=== PATIENT | male | born 1960 | race Caucasian/White ===

== ENCOUNTER 2016-11-21 06:41 | Inpatient (IN) ==
[2016-11-21] MEDS ORDERED: MORPHINE 2 MG/1 ML SYRINGE IV STA (07:12)
[2016-11-21] MEDS ORDERED: NITROGLYCERIN 2% OINT 1 INCH/GM PACK TOP STA (07:12)
[2016-11-21] MEDS ORDERED: ONDANSETRON 4 MG/2 ML VIAL IV STA (07:12)
[2016-11-21] MEDS ORDERED: ASPIRIN 325 MG TABLET PO STA (07:12)
[2016-11-21 07:17] LABS: Basophils % 0.2 % (0.0-0.8); Eosinophils # 0.1 10*3/uL (0.0-0.87); Eosinophils % 0.4 % (0.00-10.9); Hematocrit 40.6 VOL% (42.0-52.0); Hemoglobin 13.6 GM/DL (14.0-18.0); Immature Granulocytes % 0.4 %; Immature Granulocytes Absolute 0.07 #; Lymphocytes # 1.3 10*3/uL (1.4-4.0); Lymphocytes % 7.8 % (21.2-54.2); Mean Corpuscular HGB Conc 33.5 GM/DL (32-36); Mean Corpuscular Hemoglobin 27 PG (27-34); Mean Corpuscular Volume 79.3 FL (87-102); Mean Platelet Volume 10.4 FL (9.6-12.0); Monocytes % 5.8 % (1.7-12.7); Neutrophils # 13.9 10*3/uL (1.4-7.4); Neutrophils % 85.4 % (38.7-73.9); Platelet Count 271 T/CUMM (130-400); Red Blood Count 5.12 MC/CUMM (3.8-5.5); Red Cell Distribution Width 12.6 % (9.3-17.3); White Blood Count 16.3 T/CUMM (4-12)
[2016-11-21 07:32] LABS: Albumin 3.7 G/DL (3.4-5.0); Bilirubin,Total 0.5 MG/DL (0.2-1.0); Calcium 8.3 MG/DL (8.5-10.1); Osmolality,Calculated 284.2 MOS/KG (273-304); Potassium 3.8 MMOL/L (3.5-5.1)
--- NOTE | 2016-11-21 08:03 | EKG Report ---
Stationary ECG Study [facility] ER Test Date: 11/21/2016 6:57:37 AM Pat Name: KAYLEE NGO Department: Room: Gender: M Chief Of Staff: : 1960 Requested by: Yossi Luna Order Number: [id number] Reading MD: BRAYDEN MOREAU Intervals [place] Rate: 89 P: 71 PA: 194 QRS: 29 QRSD: 109 T: 76 QT: 366 QTc: 412 Interpretive Statements SINUS RHYTHM INFERIOR MYOCARDIAL INFARCTION, PROBABLY OLD Electronically Signed On 11-22-16 16:48:52 CDT by BRAYDEN MOREAU [email or web address]
--- NOTE | 2016-11-21 08:25 | XRay Report ---
XR chest 1V portable Indication: Chest pain. Chest one view: Comparison 04/22/2014. Small left pleural effusion has developed. Coarse interstitial markings in the lungs appear relatively stable from the prior exam. Left basilar atelectasis is now present. Heart size remains normal with postoperative changes median sternotomy. Impression: Small left pleural effusion, new. Otherwise no change in diffuse interstitial lung disease. PROCEDURE INTERPRETED AT [facility] DEPARTMENT OF RADIOLOGY Final Report Signed by: Louis Forte M.D.
[2016-11-21] MEDS ORDERED: ASPIRIN 325 MG TABLET ONE (09:13)
[2016-11-21] MEDS ORDERED: NITROGLYCERIN 2% OINT 1 INCH/GM PACK TOP ONE (09:14)
[2016-11-21] MEDS ORDERED: MORPHINE 2 MG/1 ML SYRINGE ONE (09:14)
[2016-11-21] MEDS ORDERED: ONDANSETRON 4 MG/2 ML VIAL ONE (09:14)
--- NOTE | 2016-11-21 10:34 | Emergency Department Note ---
Elliot Faulkner Brooke, am scribing for, and in the presence of, Yossi Luna Jr., MD 07:13. Jeremy Faulkner Marvin Jr., MD, personally performed the services described in this documentation, ascribed by Jessica Zarate in my presence, and it is both accurate and complete 732 . Arrival - Arrival Chief Complaint: Chest Pain Stated Complaint: chest pains ED Nursing Triage Note: pt states around 0045 -0100 started feeling like bp was rising as in felt like needles sticking and alot of pressure in head then had diarrhea and now having cp with sob on exertion. pt has had a cabg in the past Mode of Arrival: Ambulatory Limitations: No Limitations Source: Patient, RN Notes Reviewed Time Seen by Provider: 11/21/16 07:01 - History of Present Illness HPI Narrative: Patient is a 56 year old male who presents to the ED following a syncopal episode that happened around 1539-0427 this morning. He says his blood pressure was elevated and he felt like he was going to "blow up." He says it felt like "needles" were coming out of him "everywhere." He says he no longer feels that way. Patient says he fell onto the washer and dryer during his syncopal episode and had diarrhea and had to clean himself upon waking. Patient says he thinks he was out for about twenty minutes. He also complains of chest pain that has been intermittent for the past six months and currently, his chest is tender to touch. He says he does get short of breath upon exertion. He denies any nausea, vomiting, or abdominal pain. Patient went to [place] ED in July for elevated blood pressure. He has PMHx of HTN, dyslipidemia, and IDDM. His Primary Care Provider is Dr. Radha Mena. Patient is a smoker. He does not drink alcohol or do any drugs. Allergies/Adverse Reactions: Allergies Allergy/AdvReac Type Severity Reaction Status Date / Time No Known Allergies Allergy Unverified 11/21/16 06:50 Review of System - Review of System 12 point system: reviewed and no additional remarkable complaints except as stated - Review of System Constitutional: Absent: fever Respiratory: Present: other (SOB with exertion). Absent: respiratory distress Cardiovascular: Present: chest pain (intermittent for the last 6 months. Currently tender to touch), syncope Gastrointestinal: Present: diarrhea. Absent: abdominal pain, nausea, vomiting Skin: Absent: rash Medical,Surgical,& Family Hx - Medical History Cardio: History of: Hypertension Endocrine: History of: Diabetes Mellitus (IDDM), Dyslipidemia - Surgical History Cardiac Surgeries: Sugical HX of: Cardiac Catheterization, Cardiac Surgery (cabg ) - Family History Family History: Reports;: Family Cancer, Family Diabetes, Family Heart Disease, Family Hypertension - Social History Smoking Status: Unknown if ever smoked Frequency of Alcohol Use: None Type of Drug Use: None Exam Physical Examination: General: Well-developed well-nourished, no apparent distress. Head: Normocephalic, atraumatic. Eyes: PERRLA, EOMI. Nose: No obvious acute deformities or discharge. Mouth: No obvious acute injury. Neck: Full range of motion without obvious pain. No midline tender to palpation. Lymphatic: no significant lymphadenopathy noted. Lungs: Clear to auscultation bilaterally, normal and equal air movement bilaterally, no obvious rales or wheezing. Chest wall: Left chest wall tender to palpation, reproduces complaint Heart: regular rate and rhythm, no obvious mummers. Abdomen: Soft nontender, nondistended, normal active bowel sounds. Skin: No obivous acute lesions noted Musculoskeletal: No gross deformities. Neurological: No focal findings, cranial nerves II through XII grossly normal. Psychiatric: Anxious : Deferred Vital Signs: Vital Signs Temperature 99.2 F 11/21/16 06:44 Pulse Rate 79 11/21/16 10:00 Respiratory Rate 30 H 11/21/16 10:00 Blood Pressure 106/78 11/21/16 10:00 O2 Sat by Pulse Oximetry 100 11/21/16 10:00 Course Course Narrative: Differential diagnosis, ACS, angina, anxious mood, diarrhea, syncope, arrhythmias - Reevaluation(s) Reevaluation #1: Hospital service was consulted and they accept admission for the patient will come to the ER and admit him. Time: 10:33 Results - Labs CBC & BMP: 11/21/16 07:00 11/21/16 07:00 Lab Results: I have reviewed the patients labs Labs: Laboratory Tests 11/21/16 07:00 WBC 16.3 H RBC 5.12 Hgb 13.6 L Hct 40.6 L MCV 79.3 L MCH 27 MCHC 33.5 RDW 12.6 Plt Count 271 MPV 10.4 Neut % (Auto) 85.4 H Lymph % (Auto) 7.8 L [place] % (Auto) 5.8 Eos % (Auto) 0.4 Baso % (Auto) 0.2 Neut # (Auto) 13.9 H Lymph # (Auto) 1.3 L [place] # (Auto) 1.0 H Eos # (Auto) 0.1 Baso # (Auto) 0.0 Immature Gran % 0.4 Nucleated RBC % 0.0 Immature Gran # 0.07 Nucleated RBCs # 0.00 Laboratory Tests 11/21/16 11/21/16 07:00 07:00 Sodium 134 L Potassium 3.8 Chloride 99 Carbon Dioxide 26 Anion Gap 12.8 BUN 19 H Creatinine 1.10 GFR Calculation 105 BUN/Creatinine Ratio 17.00 Glucose 362 H Calculated Osmolality 284.2 Calcium 8.3 L Total Bilirubin 0.50 AST 11 ALT 17 Alkaline Phosphatase 99 Troponin I 0.263 H Total Protein 7.0 Albumin 3.7 Globulin 3.3 Albumin/Globulin Ratio 1.1 - EKG EKG results: interpreted by ERMD (Heart rate 89, normal sinus rhythm, narrow complex QRS complex, no obvious acute ST changes.) - Diagnostic Findings Procedure: Chest x-ray: report reviewed by me, image reviewed by me (Small left pleural effusion, new. Otherwise no change in diffuse interstitial lung disease. I personally reviewed this chest x-ray and agree) Disposition Clinical Impression: Non-ST elevation OR (NSTEMI), Hyperglycemia, Neutrophilia Case discussed with: patient, patient's family Disposition: Still a Patient Condition: Stable Time of Disposition: 10:29
[2016-11-21] MEDS ORDERED: ONDANSETRON 4 MG/2 ML VIAL IV PRN (10:38)
[2016-11-21] MEDS ORDERED: INSULIN REGULAR 100 UNIT/ML SUBCUT ONE (10:38)
[2016-11-21] MEDS ORDERED: MAGNESIUM SULF RIDER 2 GM in PREMIX 1 EACH IV PRN ×3 (10:38→17:26)
[2016-11-21] MEDS ORDERED: ACETAMINOPHEN 325 MG TABLET PO PRN (10:38)
[2016-11-21] MEDS ORDERED: MAGNESIUM HYDROXIDE SUSP 30 ML UDCUP PO PRN (10:38)
[2016-11-21] MEDS ORDERED: NITROGLYCERIN SL 0.4 MG TABLET SL PRN (10:38)
[2016-11-21] MEDS ORDERED: BISACODYL 5 MG TABLET PO PRN (10:38)
[2016-11-21] MEDS ORDERED: ENOXAPARIN 40 MG/0.4 ML SYRINGE SUBCUT SCH (11:00)
--- NOTE | 2016-11-21 11:20 | Hospitalist History & Physical ---
Assessment and Plan (1) Hyperglycemia Status: Acute Assessment and plan: Will obtain HGA1C today. Start accuchecks with sliding scale coverage; consult informatics educator. Current Visit: Yes (2) Non-ST elevation [place] (NSTEMI) Status: Acute Assessment and plan: Will admit to telemetry. Will obatain full cardiac work-up. Will get serial cardiac enzymes, echocardiogram, and carotid dopplers. Lipid panel also. Will recheck labs in AM. Current Visit: Yes History of Present Illness Chief complaint: "chest pain" History of present illness: This is a very pleasant 56 year-old male that presented to the ED this morning with a chief compliant of chest pain. He has a rather impressive history of coronary artery disease, diabetes mellitus, dyspididemia, morbid obesity, myocardial infarction, current nicotine abuse, and hypertension. He has a surgical history of coronary artery bypass in the past. He reports the onset of pain with shortness of breath around midnight last night; which progressively worsened with the progression of time. He describes the pain as "pressure like and feeling like needle pricks". The pain became so intense and he became alarmed. He was brought to the ED by his friend for further evaluation. At the time of ED arrival; he was immediately assessed. Electrocardiogram showed normal sinus rhythm, narrow complex QRS complex, no obvious acute ST changes. His cardiac enzymes were obtained which revealed a grossly troponin elevation at 0.263. White blood cell count of 16 and glucose level of 362. After discussion with Dr. Luna and Dr. Peterson, the patient will be admitted to the telemetry unit for continuation of care. Due to his extensive previous cardiac history, we will consult cardiology. Home Medications Medication Instructions Recorded Confirmed Type Aspirin EC Tab 81 mg PO QAM 11/21/16 11/21/16 History Glimepiride 2 mg PO BID 11/21/16 11/21/16 History Insulin Glargine,Hum.rec.anlog 40 unit SUBCUT BEDTIME 11/21/16 11/21/16 History [Tohuong Mayo] Losartan/Hydrochlorothiazide 0.5 each PO QAM 11/21/16 11/21/16 History [Losartan-Hctz 50-12.5 mg Tab] Metoprolol Tartrate 50 mg PO QAM 11/21/16 11/21/16 History dilTIAZem HCl [Tiazac] 360 mg PO QAM 11/21/16 11/21/16 History Allergies Allergy/AdvReac Type Severity Reaction Status Date / Time No Known Allergies Allergy Unverified 11/21/16 06:50 Medical,Surgical,& Family Hx - Medical History Cardio: History of: Hypertension Endocrine: History of: Diabetes Mellitus (IDDM), Dyslipidemia - Surgical History Cardiac Surgeries: Sugical HX of: Cardiac Catheterization, Cardiac Surgery (cabg ) - Family History Family History: Reports;: Family Cancer, Family Diabetes, Family Heart Disease, Family Hypertension - Social History Smoking Status: Current every day smoker Have you smoked in the last 12 months: Yes Time spent discussing smoking cessation with patient: more than 10 minutes Frequency of Alcohol Use: None Type of Drug Use: None Marital Status: Single Lives With:: Alone Functional capacity: independent ambulation - Constitutional Constitutional: Present: fatigue. Absent: frequent falls, headache(s), lethargy , malaise, night sweats, stops breathing during sleep, weakness, weight gain, weight loss - EENT Eyes: Absent: diplopia, loss of vision Nose, mouth and throat: Absent: nasal congestion, neck mass, neck pain - Cardiovascular Cardiovascular: Present: chest pain at rest, chest pain with activity, dyspnea, dyspnea on exertion, radiating jaw, neck or arm pain, lightheadedness. Absent: orthopnea, palpitations, PND - Respiratory Respiratory: Present: dyspnea, dyspnea on exertion, snoring, pain on inspiration. Absent: wheezing - Gastrointestinal Gastrointestinal: Absent: abdominal pain, change in bowel habits, constipation, cramping, diarrhea, melena, nausea, vomiting - Genitourinary Genitourinary: Absent: difficulty urinating, dysuria, flank pain, hematuria, nocturia, urinary frequency, urinary incontinence - Musculoskeletal Musculoskeletal: Absent: arthralgias, back pain, joint swelling, limited range of motion, muscle weakness, myalgias - Neurological Neurological: Absent: abnormal gait, abnormal speech, behavioral changes, confusion, convulsions, disequilibrium, dizziness, frequent falls, headache(s), memory loss, numbness, radicular pain, syncope, tremor(s) - Psychiatric Psychiatric: Absent: anxiety, confusion, difficulty concentrating, homicidal ideation, memory loss, suicidal ideation, visual hallucinations - Endocrine Endocrine: Absent: polydipsia, polyphagia, polyuria - Hematologic/Lymphatic Hematologic/Lymphatic: Absent: easy bleeding, easy bruising, lymphadenopathy Exam - Constitutional Vitals: Period Temp Pulse Resp BP Sys/Merlos Pulse Ox Last 24 Hr 80-80 20-20 111-120/76-85 98-100 General appearance: mild distress, morbidly obese - Head Head exam: Present: normal inspection, normocephalic, atraumatic - Eye Eye exam: Present: EOMI. Absent: conjunctival injection, nystagmus, periorbital swelling, scleral icterus Pupils: Present: ESTEFANIA, normal accommodation - ENT ENT exam: Present: normal exam, normal external ear exam - Neck Neck exam: Present: normal inspection. Absent: lymphadenopathy, meningismus, tenderness, thyromegaly - Respiratory Respiratory exam: Present: clear to auscultation bilaterally, chest wall tenderness (left wall tenderness) - Cardiovascular Cardiovascular exam: Present: regular rate and rhythm, tachycardia. Absent: diastolic murmur, gallop, JVD, rubs - GI/Abdominal GI/Abdominal exam: Present: normal bowel sounds, soft. Absent: firm, guarding, tenderness - Extremities Exam Extremities exam: Present: normal inspection, full ROM. Absent: edema (trace edema) - Back Exam Back exam: Present: normal inspection - Neurological Exam Neurological exam: Present: alert, oriented X3, CN II-XII intact - Psychiatric Psychiatric exam: Present: normal affect, normal mood - Skin Skin exam: Present: normal color, warm, dry Results - Labs CBC & BMP: 11/21/16 07:00 11/21/16 07:00 Lab Results: I have reviewed the past 24 hour labs
--- NOTE | 2016-11-21 11:34 | Ultrasound Report ---
US carotid duplex BI Indication: Syncope. CAROTID ULTRASOUND Comparison: 11/03/2006. Findings: Grayscale, color Doppler and pulsed Doppler interrogation of the carotid and vertebral arteries performed. Severity of stenosis based on flow velocity measurements using NASCET criteria. Distal right ICA diameter: 4.9 mm Distal left ICA diameter: 5.4 mm Peak systolic flow velocities in centimeters per second are as follows: Right: CCA: 85 cm/s Proximal ICA: 108 Distal ICA: 73 ICA/CCA ratio: 1.3 Left: CCA: 119 cm/s Proximal ICA: 63 Distal ICA: 71 ICA/CCA ratio: 0.6 External carotid arteries: Both are patent with antegrade flow. Vertebral arteries: Both are patent with antegrade flow. Grayscale and color Doppler images: A couple small foci of focal plaque deposition identified, with normal color Doppler flow present. Pulse Doppler waveform interrogation: No significant spectral broadening. Impression: No hemodynamically significant stenosis of either ICA origin. PROCEDURE INTERPRETED AT [facility] DEPARTMENT OF RADIOLOGY Final Report Signed by: Louis Forte M.D.
[2016-11-21 12:37] LABS: Risk Ratio 4.9; VLDL CHOLESTEROL 17.2 MG/DL
[2016-11-21 12:46] LABS: Free T4 (Free Thyroxine) 1.03 NG/DL (0.76-1.46); Thyroid Stimulating Hormone 0.954 uIU/ml (0.358-3.74)
--- NOTE | 2016-11-21 13:34 | EKG Report ---
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
[2016-11-21] MEDS: LISINOPRIL 2.5 MG TABLET PO SCH (14:14)
[2016-11-21] MEDS: LEVOFLOXACIN INJ 750 MG in PREMIX 1 EACH IV SCH (14:15)
--- NOTE | 2016-11-21 15:44 | Cardiology Consult Note ---
Assessment and Plan (1) Non-ST elevation [place] (NSTEMI) Status: Acute Assessment and plan: 56-year-old male, CAD, status post CABG, presenting with non-STEMI. Moderate risk presentation. Borderline biomarkers, without significant EKG changes, chest pain resolved with medical management. Hypertension hyperlipidemia, diabetes. Obesity, smoking. -Continue aspirin. -Load with Brilinta, start full dose Lovenox. -Statin -PPI. -Continue beta trevor -NTG -Pull in his old records into the EMR -Keep on telemetry, recheck EKG in a.m. -Cardiac rehab consult -Discussed risks and benefits of management options. I will keep him n.p.o. after midnight, plan for [facility] tomorrow Current Visit: Yes (2) Hyperglycemia Status: Acute Current Visit: Yes (3) Neutrophilia Status: Acute Current Visit: Yes History of Present Illness - Data of Consult Patient: known to practice within the last 3 years Consult date: 11/21/16 - Consult Narrative Reason for consult: nstemi History of present illness: Mr. Kline is a 56 year old male with history of hypertension hyperlipidemia CAD, status post CABG 2 in 2013, by Dr. Paiz. His certified ophthalmic surgical assistant is Dr. Contreras. Unfortunately, my PCI access is not working and the [facility] system is down and I am unable to obtain any further details on his prior cardiac history or coronary anatomy. Last night, he developed sudden onset, severe retrosternal chest pain, which was radiating both sides, and had a tingling sensation in the neck too. This lasted for hours. In the emergency room, this resolved with medical management. Right now, his chest pain-free. EKG sinus rhythm, without significant ST-T changes. Blood pressure is stable. He denies any shortness of breath. Prior to current presentation, he felt fine and had no exertional symptoms. He keeps smoking. Compliant with his medications. He does not check his blood pressure at home and is not sure about his recent hemoglobin A1c. Troponin borderline elevated and flat, renal function normal. Telemetry so far did not show significant arrhythmia. CC: Genevieve Orellana MD - Home Medications and Allergies Home Medications: Home Medications Medication Instructions Recorded Confirmed Type Aspirin EC Tab 81 mg PO QAM 11/21/16 11/21/16 History Glimepiride 2 mg PO BID 11/21/16 11/21/16 History Insulin Glargine,Hum.rec.anlog 40 unit SUBCUT BEDTIME 11/21/16 11/21/16 History [Jose Postar] Losartan/Hydrochlorothiazide 0.5 each PO QAM 11/21/16 11/21/16 History [Losartan-Hctz 50-12.5 mg Tab] Metoprolol Tartrate 50 mg PO QAM 11/21/16 11/21/16 History dilTIAZem HCl [Tiazac] 360 mg PO QAM 11/21/16 11/21/16 History Allergies/Adverse Reactions: Allergies Allergy/AdvReac Type Severity Reaction Status Date / Time No Known Allergies Allergy Unverified 11/21/16 06:50 12 point system: reviewed and no additional remarkable complaints except as stated Medical,Surgical,& Family Hx - Medical History Cardio: History of: Hypertension, DC (x4) Endocrine: History of: Diabetes Mellitus (IDDM), Dyslipidemia Respiratory: History of: Pneumonia Genitourinary: History of: Recurring Urinary Tract Infections Gastrointestinal: History of: GERD Musculoskeletal: History of: Back/Neck Problems, Herniated Disk - Surgical History Cardiac Surgeries: Sugical HX of: Cardiac Catheterization, Cardiac Surgery (cabg ) Abdominal Surgeries: Surgical HX of: Colonoscopy, EGD - Family History Family History: Reports;: Family Cancer, Family Diabetes, Family Heart Disease, Family Hypertension - Social History Smoking Status: Current every day smoker Frequency of Alcohol Use: None Type of Drug Use: None Physical Examination Vital Signs Temp Pulse Resp BP Pulse Ox 99.2 F 90 16 143/97 94 L 11/21/16 06:44 11/21/16 06:44 11/21/16 06:44 11/21/16 06:44 11/21/16 06:44 General: Present: Appears Well, No Apparent Distress, Other (Obese) HEENT: Present: Normocephaly, Mucus Membranes Moist Neck: Present: Supple Neck, Midline Trachea, No JVD/HJR Cardiac: Present: Regular Rate, Regular Rhythm, No Murmur Lungs: Present: Normal Exam, No Wheezes, No Rales Neuro: Present: Grossly Intact Abdomen: Present: Soft, Active Bowel Sounds Skin: Present: Clear Musculoskeletal: Present: No Pain Extremities: Present: No Clubbing, No Cyanosis, No Edema Result/EKG - Labs CBC & BMP: 11/21/16 07:00 11/21/16 07:00 Lab Results: I have reviewed the past 24 hour labs Labs: Laboratory Results - last 24 hr 11/21/16 11/21/16 11/21/16 11:54 11:54 11:54 POC Glucose Hemoglobin A1c 9.9 H Magnesium 2.0 Troponin I 0.514 H D Triglycerides 86 Cholesterol 152 LDL Cholesterol 109.0 VLDL Cholesterol 17.2 HDL Cholesterol 31 L Heart Disease Risk Ratio 4.90 Free T4 TSH 3rd Generation 11/21/16 11/21/16 11/21/16 11:54 13:50 14:23 POC Glucose 240 H Hemoglobin A1c Magnesium Troponin I 0.586 H Triglycerides Cholesterol LDL Cholesterol VLDL Cholesterol HDL Cholesterol Heart Disease Risk Ratio Free T4 1.03 TSH 3rd Generation 0.954 - EKG EKG results: interpreted by me
[2016-11-21] MEDS: SODIUM CHLORIDE 0.45% 1,000 ML IV SCH (15:45)
[2016-11-21] MEDS ORDERED: TICAGRELOR 90 MG TABLET PO ONE (15:51)
[2016-11-21] MEDS ORDERED: POTASSIUM CHLORIDE RIDER 10 MEQ in PREMIX 1 EACH IV PRN ×2 (15:58→17:26)
[2016-11-21] MEDS ORDERED: diphenhydrAMINE CAP 25 MG CAPSULE PO ONE (17:26)
[2016-11-21] MEDS ORDERED: DIAZEPAM 5 MG TABLET PO ONE (17:26)
--- NOTE | 2016-11-21 17:32 | ECHO Report ---
Carin Kline Exam Date: 11/21/2016 10:59 Referring Physician: Technologist: Katherine Paz RDCS Age: 56 Ht (in): 73 Wt (lb): 275 Gender: M Exam Location: [facility] Echo Indications: Chest pain, unspecified, Non-ST elevation (NSTEMI) myocardial infarction, CAD with previous CABG, IDDM, Nicotine dependence, cigarettes, uncomplicated, Essential (primary) hypertension BP: 111 / 76 HR: 69 Rhythm: Sinus Technical Quality: IMPRESSIONS Normal left ventricular cavity size. Mild left ventricular hypertrophy. Normal systolic function. Left ventricular ejection fraction is estimated at 50 %. Grade 1 diastolic dysfunction. Mild left atrial enlargement. MEASUREMENTS (Male / Female) Normal Values 2D ECHO LV Diastolic Diameter PLAX 4.7 cm 4.2 - 5.9 / 3.9 - 5.3 cm LV Systolic Diameter PLAX 2.9 cm LV Fractional Shortening PLAX 37.3 % IVS Diastolic Thickness 1.2 cm 0.6 - 1.0 / 0.6 - 0.9 cm LVPW Diastolic Thickness 1.3 cm 0.6 - 1.0 / 0.6 - 0.9 cm RV Internal Dim ED PLAX 3.8 cm Aortic Root Diameter 3.5 cm LA Systolic Diameter LX 4.3 cm 3.0 - 4.0 / 2.7 - 3.8 cm DOPPLER TR Peak Velocity 231.0 cm/s TR Peak Gradient 21.3 mmHg FINDINGS Left Ventricle Normal left ventricular cavity size. Mild left ventricular hypertrophy. Normal systolic function. Left ventricular ejection fraction is estimated at 50 %. Grade 1 diastolic dysfunction. Right Ventricle The right ventricle is normal in size and function. Right Atrium The right atrium is normal in size. Left Atrium The left atrium is mildly enlarged. Mitral Valve Morphologically normal mitral valve without significant stenosis or prolapse. There is no mitral regurgitation. Aortic Valve Morphologically normal aortic valve without significant sclerosis or stenosis. There is no aortic regurgitation. Tricuspid Valve Morphologically normal tricuspid valve. Trace to mild tricuspid valve regurgitation. Tricuspid regurgitation velocities suggest a PAP of 31 mmHg. Pulmonic Valve Morphologically normal pulmonic valve without significant stenosis. There is no pulmonic regurgitation. Pericardium Normal pericardium without effusion. Aorta Normal ascending aorta dimension. Richard Mai (Electronically Signed) Final Date: 21 November 2016 17:30
--- NOTE | 2016-11-21 17:35 | History and Physical Update ---
Sedation H&P Update - History and Physical H&P was reviewed, the patient examined and there: are no changes in the patients condition since last H&P was completed. (No bleeding in the pt's bowels , urine, or coughing up blood. No planned surgery for the next year. No contraindication to anticoagulation for a year.) - Dictation Physical: refer to H&P completed by admitting physician - Physical Exam Mental Status: alert and oriented Heart: regular rate and rhythm Lung: clear to auscultation Abdomen: within normal limits Vitals: within normal limits (Bilateral femoral pulses are 4+. Foot pulses are 2+.) - Sedation Plan for Sedation: minimal Patient Consent: Procedure disscussed with patient and patinet has consented., Risks and benefits were discussed with patient,including infection,, bleeding, injury to surrounding structures, seizure, temporary nerve, Patient understands and accepts potential risks/benefits and agrees to (Left heart cath and possible PTCA or stent were discussed with the patient. The risk of the procedure include but are not limited to a small risk of injury to the vessel, abnormal heart rhythm, stroke, heart attack, need for emergent surgery, contrast reaction, restenosis, or . The patient voices understanding, agrees with the plan, and desires to proceed with the heart catheterization.), proceed. ASA Class: II Airway Assessment: Class III: Soft palate, base of uvula visible
[2016-11-21] MEDS: ENOXAPARIN 120 MG/0.8 ML SYRINGE SUBCUT SCH (17:37)
[2016-11-21] MEDS: INSULIN REGULAR 100 UNIT/ML SUBCUT SCH ×2 (17:40→21:51)
[2016-11-21] MEDS ORDERED: CARVEDILOL 3.125 MG TABLET PO SCH (21:00)
[2016-11-21] MEDS: ROSUVASTATIN 20 MG TABLET PO SCH (21:50)
[2016-11-21] MEDS: CARVEDILOL 3.125 MG TABLET PO SCH (21:51)
[2016-11-21] MEDS: TICAGRELOR 90 MG TABLET PO SCH (21:51)
[2016-11-22] MEDS: SODIUM CHLORIDE 0.9% 1,000 ML IV SCH ×3 (01:00→15:16)
[2016-11-22] MEDS: ENOXAPARIN 120 MG/0.8 ML SYRINGE SUBCUT SCH (05:41)
[2016-11-22 06:05] LABS: Basophils % 0.3 % (0.0-0.8); Eosinophils # 0.2 10*3/uL (0.0-0.87); Eosinophils % 3.6 % (0.00-10.9); Hematocrit 36.4 VOL% (42.0-52.0); Hemoglobin 12.2 GM/DL (14.0-18.0); Immature Granulocytes % 0.1 %; Immature Granulocytes Absolute 0.01 #; Lymphocytes # 2.4 10*3/uL (1.4-4.0); Mean Corpuscular HGB Conc 33.5 GM/DL (32-36); Mean Corpuscular Hemoglobin 27 PG (27-34); Mean Corpuscular Volume 79.1 FL (87-102); Mean Platelet Volume 10.1 FL (9.6-12.0); Monocytes # 0.5 10*3/uL (0.11-0.8); Monocytes % 6.7 % (1.7-12.7); Neutrophils # 3.6 10*3/uL (1.4-7.4); Neutrophils % 54.3 % (38.7-73.9); Platelet Count 230 T/CUMM (130-400); Red Cell Distribution Width 12.9 % (9.3-17.3); White Blood Count 6.7 T/CUMM (4-12)
[2016-11-22 06:27] LABS: Burr Cells Slight; Hypochromasia 1+; Ovalocytes Slight; Platelet Estimate Adequate
[2016-11-22 06:44] LABS: Bilirubin,Total 0.5 MG/DL (0.2-1.0); Calcium 8.2 MG/DL (8.5-10.1); Magnesium 2.1 MG/DL (1.8-2.4); Osmolality,Calculated 281.3 MOS/KG (273-304); Potassium 3.4 MMOL/L (3.5-5.1); Total Protein 6.5 G/DL (6.4-8.3)
[2016-11-22 06:50] LABS: Calcium 8.4 MG/DL (8.5-10.1); Osmolality,Calculated 283.1 MOS/KG (273-304); Potassium 3.4 MMOL/L (3.5-5.1)
[2016-11-22] MEDS: SODIUM CHLORIDE 0.45% 1,000 ML IV SCH ×2 (07:19→07:20)
--- NOTE | 2016-11-22 07:32 | EKG Report ---
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
[2016-11-22] MEDS: PANTOPRAZOLE 40 MG TABLET PO SCH (08:32)
[2016-11-22] MEDS: LISINOPRIL 2.5 MG TABLET PO SCH (08:32)
[2016-11-22] MEDS: ASPIRIN EC 81 MG TABLET PO SCH (08:39)
[2016-11-22] MEDS: TICAGRELOR 90 MG TABLET PO SCH (08:39)
[2016-11-22] MEDS: CARVEDILOL 3.125 MG TABLET PO SCH ×2 (08:39→21:52)
[2016-11-22] MEDS: INSULIN REGULAR 100 UNIT/ML SUBCUT SCH ×4 (08:57→21:53)
[2016-11-22] MEDS ORDERED: DIAZEPAM 5 MG TABLET ONE (09:53)
[2016-11-22] MEDS ORDERED: diphenhydrAMINE CAP 50 MG CAPSULE ONE (09:55)
[2016-11-22] MEDS ORDERED: diphenhydrAMINE CAP 25 MG CAPSULE PO ONE (10:00)
[2016-11-22] MEDS ORDERED: DIAZEPAM 5 MG TABLET PO ONE (10:00)
[2016-11-22] MEDS ORDERED: HEPARIN/NACL 0.9% 2 UNITS/ML 1,000 ML IV ONE (10:07)
[2016-11-22] MEDS ORDERED: HYDROmorphone 2 MG/1 ML VIAL ONE (10:07)
[2016-11-22] MEDS ORDERED: MIDAZOLAM 2 MG/2 ML VIAL ONE (10:07)
[2016-11-22] MEDS ORDERED: LIDOCAINE 1% 20 ML VIAL ONE (10:07)
--- NOTE | 2016-11-22 11:24 | Cardiology Progress Note ---
Cardiology - PN: Subj Interval history: Cardiology note No further pain Telemetry has been benign Decreased breath sounds but clear. Regular rhythm no gallop No leg edema lab data today Sodium 142 potassium 3.4 chloride 106 CO2 26 BUN 13 creatinine 0.80 Hemoglobin A1c 9.9 Impression Recurrent chest pain and trivial troponin Status post two-vessel CABG 2013 Diabetes Hypertension Plan Heart cath today Normal saline hydration Exam (Progress Note) - Constitutional Vitals: Period Temp Pulse Resp BP Sys/Merlos Pulse Ox Last 24 Hr 96.8 F-98.5 F 65-98 17-20 121-141/72-92 92-99 Result/EKG - Labs CBC & BMP: 11/22/16 05:39 11/22/16 05:39 Labs: Laboratory Results - last 24 hr 11/21/16 11/21/16 11/21/16 11:54 11:54 11:54 WBC RBC Hgb Hct MCV MCH MCHC RDW Plt Count MPV Neut % (Auto) Lymph % (Auto) Ward % (Auto) Eos % (Auto) Baso % (Auto) Neut # (Auto) Lymph # (Auto) Ward # (Auto) Eos # (Auto) Baso # (Auto) Immature Gran % Nucleated RBC % Immature Gran # Nucleated RBCs # Platelet Estimate Hypochromasia Ovalocytes Addison Cells Morphology Comment Sodium Potassium Chloride Carbon Dioxide Anion Gap BUN Creatinine GFR Calculation BUN/Creatinine Ratio Glucose POC Glucose Hemoglobin A1c 9.9 H Calculated Osmolality Calcium Magnesium 2.0 Total Bilirubin AST ALT Alkaline Phosphatase Troponin I 0.514 H D Total Protein Albumin Globulin Albumin/Globulin Ratio Triglycerides 86 Cholesterol 152 LDL Cholesterol 109.0 VLDL Cholesterol 17.2 HDL Cholesterol 31 L Heart Disease Risk Ratio 4.90 Free T4 TSH 3rd Generation 11/21/16 11/21/16 11/21/16 11:54 13:50 14:23 WBC RBC Hgb Hct MCV MCH MCHC RDW Plt Count MPV Neut % (Auto) Lymph % (Auto) Ward % (Auto) Eos % (Auto) Baso % (Auto) Neut # (Auto) Lymph # (Auto) Ward # (Auto) Eos # (Auto) Baso # (Auto) Immature Gran % Nucleated RBC % Immature Gran # Nucleated RBCs # Platelet Estimate Hypochromasia Ovalocytes Cesia Cells Morphology Comment Sodium Potassium Chloride Carbon Dioxide Anion Gap BUN Creatinine GFR Calculation BUN/Creatinine Ratio Glucose POC Glucose 240 H Hemoglobin A1c Calculated Osmolality Calcium Magnesium Total Bilirubin AST ALT Alkaline Phosphatase Troponin I 0.586 H Total Protein Albumin Globulin Albumin/Globulin Ratio Triglycerides Cholesterol LDL Cholesterol VLDL Cholesterol HDL Cholesterol Heart Disease Risk Ratio Free T4 1.03 TSH 3rd Generation 0.954 11/21/16 11/21/16 11/22/16 16:48 21:54 05:39 WBC 6.7 D RBC 4.60 Hgb 12.2 L Hct 36.4 L MCV 79.1 L MCH 27 MCHC 33.5 RDW 12.9 Plt Count 230 MPV 10.1 Neut % (Auto) 54.3 Lymph % (Auto) 35.0 Ward % (Auto) 6.7 Eos % (Auto) 3.6 Baso % (Auto) 0.3 Neut # (Auto) 3.6 Lymph # (Auto) 2.4 Ward # (Auto) 0.5 Eos # (Auto) 0.2 Baso # (Auto) 0.0 Immature Gran % 0.1 Nucleated RBC % 0.0 Immature Gran # 0.01 Nucleated RBCs # 0.00 Platelet Estimate Adequate Hypochromasia 1+ Ovalocytes Slight Cesia Cells Slight Morphology Comment Sodium Potassium Chloride Carbon Dioxide Anion Gap BUN Creatinine GFR Calculation BUN/Creatinine Ratio Glucose POC Glucose 107 H Hemoglobin A1c Calculated Osmolality Calcium Magnesium Total Bilirubin AST ALT Alkaline Phosphatase Troponin I 0.867 H D Total Protein Albumin Globulin Albumin/Globulin Ratio Triglycerides Cholesterol LDL Cholesterol VLDL Cholesterol HDL Cholesterol Heart Disease Risk Ratio Free T4 TSH 3rd Generation 11/22/16 11/22/16 11/22/16 05:39 05:39 07:24 WBC RBC Hgb Hct MCV MCH MCHC RDW Plt Count MPV Neut % (Auto) Lymph % (Auto) Ward % (Auto) Eos % (Auto) Baso % (Auto) Neut # (Auto) Lymph # (Auto) Ward # (Auto) Eos # (Auto) Baso # (Auto) Immature Gran % Nucleated RBC % Immature Gran # Nucleated RBCs # Platelet Estimate Hypochromasia Ovalocytes Cesia Cells Morphology Comment Sodium 141 142 Potassium 3.4 L 3.4 L Chloride 106 106 Carbon Dioxide 26 26 Anion Gap 12.4 13.4 BUN 12 13 Creatinine 0.80 0.80 GFR Calculation 138 138 BUN/Creatinine Ratio 15.00 16.00 Glucose 116 H 116 H POC Glucose 129 H Hemoglobin A1c Calculated Osmolality 281.3 283.1 Calcium 8.2 L 8.4 L Magnesium 2.1 Total Bilirubin 0.50 AST 13 ALT 13 L Alkaline Phosphatase 61 Troponin I Total Protein 6.5 Albumin 3.0 L Globulin 3.5 Albumin/Globulin Ratio 0.8 L Triglycerides Cholesterol LDL Cholesterol VLDL Cholesterol HDL Cholesterol Heart Disease Risk Ratio Free T4 TSH 3rd Generation Specialty Discharge - Follow Up or Referrals
--- NOTE | 2016-11-22 11:36 | Cardiac Catheterization ---
Date of Procedure:: 11/22/16 Procedure: CLINICAL SUMMARY: The patient presented with chest pain symptoms and a slight bump in cardiac enzymes and is now undergoing cardiac catheterization for definitive coronary artery assessment and possible revascularization. PROCEDURES PERFORMED: 1. Right femoral percutaneous arteriotomy 2. Left heart catheterization. 3. Resting hemodynamics. 4. Left ventriculography. 5. Coronary arteriography. 6. Right femoral arteriogram. 7. Angio-Seal closure of the right femoral artery. 8. Coronary artery bypass graft angiography. DESCRIPTION OF PROCEDURE: After obtaining informed consent, the patient was brought to the cardiac catheterization lab where the right groin was prepped and draped in the usual sterile manner. Using IV sedation, local anesthesia, and Modified Seldinger technique, a needle was placed in the right femoral artery and a sheath was positioned without difficulty. A left coronary catheter was advanced over a guidewire under fluoroscopic control to the ascending aorta where angiograms of the left coronary artery were undertaken in multiple views. After adequate angiograms, this catheter was withdrawn and a right coronary catheter was advanced over a guidewire under fluoroscopic control to the ascending aorta where we attempted to perform angiography of the right coronary artery but could not engage this vessel with the JR4 catheter. We used this catheter to perform angiography of the left internal mammary arterial graft to the left anterior descending artery. We then attempted to use an AL-1 catheter to engage the remaining bypass graft and right coronary artery. There were able to use this catheter to perform angiography of the saphenous vein graft to the posterolateral branch. Could not engage the right coronary artery with this catheter. We tried several other catheters until we finally engage the right coronary artery with a multipurpose catheter. After adequate angiograms, this catheter was removed and a pigtail ventriculographic catheter was advanced over a guidewire under fluoroscopic control to the aortic valve and left ventricular pressures were measured. After adequate pressures were measured, this catheter was used to perform left ventriculography in the [id number] projection. This catheter was then withdrawn under hemodynamic monitoring and removed from the patient. A right femoral arteriogram was performed showing adequate sheath placement for closure device deployment. The sheath was then removed and an Angio-Seal device was used to obtain hemostasis. The patient was transferred back to the room having suffered no immediate complications. HEMODYNAMICS: See the accompanying data sheet. CORONARY ARTERIOGRAPHY: LEFT MAIN: The left main coronary artery is a large caliber vessel, which trifurcates into the left anterior descending ramus intermedius and left circumflex coronary arteries. The left main coronary artery has no significant obstructive disease. RAMUS INTERMEDIUS: Ramus is small to moderate size vessel which has a 50% ostial stenosis. It has not changed significant since his previous catheterization 3 years ago. LEFT CIRCUMFLEX: The left circumflex coronary artery is a large-caliber vessel which gives off a small first obtuse marginal moderate size second obtuse marginal and a moderate size posterolateral system. There are some diffuse luminal irregularities throughout the circumflex system. The second obtuse marginal branch has a diffuse area of up to 70% stenosis proximally, however this is not changed significantly since his catheterization 3 years ago. LEFT ANTERIOR DESCENDING: The left anterior descending artery is occluded at its origin from the left main coronary artery. The distal vessel is seen filling via a patent left internal mammary arterial graft. There is severe disease proximal to the touchdown of the graft with faint backwards filling. RIGHT CORONARY ARTERY: The right coronary artery is a small to moderate size vessel which appears to be nondominant. There are diffuse luminal irregularities of up to 50-60%. LEFT VENTRICULOGRAPHY: Left ventricular ejection fraction is estimated at 55-60 % with normal regional wall motion. PERIPHERAL ARTERIOGRAPHY: Right femoral arteriogram shows a normal right iliofemoral artery with adequate sheath placement for closure device deployment. IMPRESSIONS: 1. Multivessel coronary artery disease as described above. 2. 2 of 2 bypass grafts are widely patent. 3. Left ventricular systolic function is preserved. PLAN: The patient has diffuse multivessel coronary artery disease. His coronary anatomy has not changed much since his previous catheterization, with the exception of his left anterior descending is now completely occluded. However, this fills via a patent left internal mammary arterial graft. There is severe disease in the LAD proximal to the graft touchdown. There is also moderate disease in the circumflex and ramus system. There is some moderate diffuse disease in the right coronary artery system as well. Ultimately, since both of his grafts are patent and there has been little other change in his coronary anatomy since his previous catheterization 3 years ago, and his left ventricular systolic function is normal, I think I'm going to pursue medical management at this time. The patient had some palpitations associated with his chest discomfort and I'm suspicious he may have had transient arrhythmia such as paroxysmal atrial fibrillation with supply demand mismatch contributing to his ischemia. We will try to optimize his medication to minimize this potential. Anesthesia: minimal conscious sedation Surgeon / Physician: Pedro Claire Estimated blood loss: minimal Condition: stable Disposition: floor - Medications / Follow-up
[2016-11-22] MEDS: ASCORBIC ACID 500 MG TABLET PO SCH ×2 (12:16→20:56)
[2016-11-22] MEDS: POTASSIUM CHLORIDE 20 MEQ TABLET PO SCH (12:17)
[2016-11-22] MEDS: LEVOFLOXACIN INJ 750 MG in PREMIX 1 EACH IV SCH (13:07)
--- NOTE | 2016-11-22 16:44 | Hospitalist Progress Note ---
Assessment and Plan - Time spent with patient Time spent with patient: Greater than 30 minutes (1) Non-ST elevation [place] (NSTEMI) Status: Acute Assessment and plan: Cath findings noted. Medical management. Current Visit: Yes (2) CAD (coronary artery disease) Status: Acute Assessment and plan: Continue current management. Current Visit: Yes (3) Diabetes mellitus Status: Acute Assessment and plan: SSI. Current Visit: Yes (4) Hypertension Status: Acute Assessment and plan: Continue medical management. Current Visit: Yes Hospitalist: Subjective Interval history: No complaints. S/P cath today. Exam - Constitutional Vitals: Period Temp Pulse Resp BP Sys/Merlos Pulse Ox Last 24 Hr 96.7 F-98.1 F 58-100 17-20 106-141/66-92 92-99 General appearance: no acute distress - Head Head exam: Present: normocephalic, atraumatic - Eye Eye exam: Present: EOMI Pupils: Present: ESTEFANIA - ENT ENT exam: Present: normal exam - Neck Neck exam: Present: normal inspection - Respiratory Respiratory exam: Present: clear to auscultation bilaterally. Absent: rhonchi, wheezes - Cardiovascular Cardiovascular exam: Present: regular rate and rhythm. Absent: gallop, rubs, systolic murmur - GI/Abdominal GI/Abdominal exam: Present: normal bowel sounds, soft. Absent: distended, firm , guarding, tenderness, rebound - Extremities Exam Extremities exam: Present: normal inspection. Absent: calf tenderness, edema Results - Labs CBC & BMP: 11/22/16 05:39 11/22/16 05:39 Lab Results: I have reviewed the past 24 hour labs Specialty Discharge - Follow Up or Referrals
[2016-11-22] MEDS: ROSUVASTATIN 20 MG TABLET PO SCH (20:56)
[2016-11-23 03:54] LABS: Basophils % 0.3 % (0.0-0.8); Eosinophils # 0.2 10*3/uL (0.0-0.87); Eosinophils % 2.7 % (0.00-10.9); Hemoglobin 12.3 GM/DL (14.0-18.0); Immature Granulocytes % 0.4 %; Immature Granulocytes Absolute 0.03 #; Lymphocytes # 1.7 10*3/uL (1.4-4.0); Lymphocytes % 25.2 % (21.2-54.2); Mean Corpuscular HGB Conc 32.4 GM/DL (32-36); Mean Corpuscular Hemoglobin 26 PG (27-34); Mean Platelet Volume 10.8 FL (9.6-12.0); Monocytes # 0.4 10*3/uL (0.11-0.8); Monocytes % 6.5 % (1.7-12.7); Neutrophils # 4.4 10*3/uL (1.4-7.4); Neutrophils % 64.9 % (38.7-73.9); Platelet Count 248 T/CUMM (130-400); Red Blood Count 4.69 MC/CUMM (3.8-5.5); Red Cell Distribution Width 12.8 % (9.3-17.3); White Blood Count 6.8 T/CUMM (4-12)
[2016-11-23 04:20] LABS: Calcium 8.8 MG/DL (8.5-10.1); Magnesium 1.8 MG/DL (1.8-2.4); Osmolality,Calculated 281.5 MOS/KG (273-304); Potassium 3.8 MMOL/L (3.5-5.1)
[2016-11-23 04:22] LABS: Calcium 8.9 MG/DL (8.5-10.1); Osmolality,Calculated 283.4 MOS/KG (273-304); Potassium 3.8 MMOL/L (3.5-5.1)
[2016-11-23] MEDS ORDERED: POTASSIUM CHLORIDE 20 MEQ TABLET PO ONE (08:11)
[2016-11-23] MEDS ORDERED: MAGNESIUM SULF RIDER 2 GM in PREMIX 1 EACH IV ONE (08:11)
[2016-11-23] MEDS ORDERED: CLOPIDOGREL 75 MG TABLET PO SCH (09:00)
[2016-11-23] MEDS: MAGNESIUM SULF RIDER 4 GM in PREMIX 1 EACH IV PRN ×2 (09:00→09:08)
[2016-11-23] MEDS: POTASSIUM CHLORIDE 20 MEQ TABLET PO SCH (09:06)
[2016-11-23] MEDS: PANTOPRAZOLE 40 MG TABLET PO SCH (09:06)
[2016-11-23] MEDS: ASCORBIC ACID 500 MG TABLET PO SCH (09:07)
[2016-11-23] MEDS: ASPIRIN EC 81 MG TABLET PO SCH (09:07)
[2016-11-23] MEDS: LISINOPRIL 2.5 MG TABLET PO SCH (09:07)
[2016-11-23] MEDS: CARVEDILOL 3.125 MG TABLET PO SCH (09:07)
--- NOTE | 2016-11-23 09:07 | Cardiology Progress Note ---
Assessment and Plan (1) CAD (coronary artery disease) Status: Acute Assessment and plan: The patient has stable multivessel coronary artery disease and his bypass grafts are patent. I did not see much change in his coronary anatomy from his previous catheterization other than that his LAD is now completely occluded and it was subtotal before. However, the distal vessel fills via patent left internal mammary artery. At this point, I think we will continue medical management. He had no problems or complications from cardiac catheterization and I think he can be discharged home. He should follow-up with Dr. Contreras his primary attorney general in a few weeks. I would get a CBC, CMP, lipid, and EKG at that follow-up. Current Visit: Yes (2) Hypokalemia Status: Acute Current Visit: Yes (3) Hyperlipidemia Status: Acute Current Visit: Yes (4) Diabetes mellitus Status: Acute Current Visit: Yes (5) Hyperglycemia Status: Acute Current Visit: Yes (6) Hypertension Status: Acute Current Visit: Yes (7) Non-ST elevation [place] (NSTEMI) Status: Acute Current Visit: Yes Cardiology - PN: Subj Interval history: The patient is feeling well this morning. He denies any anginal symptoms. He has no palpitations or other complaints. His blood pressure is under excellent control. His electrolytes are improved. Yesterday cardiac catheterization showed essentially stable multivessel coronary artery disease with widely patent bypass grafts. At this point were given to manage the patient medically. I'm actually suspicious he may have had some transient arrhythmia that created a supply demand mismatch causing his angina and slight cardiac enzyme abnormality. I think correcting his electrolytes will help prevent arrhythmias. Current Medications Acetaminophen (Tylenol Tab) 650 mg PO Q4H PRN PRN Reason: Temperature greater than 101F Hydrocodone Bitart/Acetaminophen (Stites 5-325) 1 tablet PO Q6H PRN PRN Reason: Pain Moderate (4-7) Ascorbic Acid (Vitamin C Tab) 1,000 mg PO BID [facility] Last Admin: 11/22/16 20:56 Dose: 1,000 mg Aspirin () 81 mg PO DAILY [facility] Last Admin: 11/22/16 08:39 Dose: 81 mg Bisacodyl (Dulcolax Tab) 10 mg PO DAILY PRN PRN Reason: Constipation Carvedilol (Coreg) 6.25 mg PO BID [facility] Last Admin: 11/22/16 21:52 Dose: 6.25 mg Clopidogrel Bisulfate (Plavix) 75 mg PO DAILY [facility] Magnesium Sulfate 4 gm/ Premix 100 mls @ 25 mls/hr IV ONCE PRN PRN Reason: Magnesium level less than 1.5 Last Admin: 11/23/16 09:00 Dose: 25 mls/hr Magnesium Sulfate 2 gm/ Premix 50 mls @ 25 mls/hr IV ONCE PRN PRN Reason: Magnesium level 1.5 to 1.8 Levofloxacin/Dextrose 750 mg/ (Premix) 150 mls @ 100 mls/hr IV Q24H [facility] Last Admin: 11/22/16 13:07 Dose: 100 mls/hr Potassium Chloride 10 meq/ (Premix) 100 mls @ 100 mls/hr IV Q1H PRN PRN Reason: Potassium less than 3.5 Last Infusion: 11/22/16 10:51 Dose: Infused Magnesium Sulfate 2 gm/ Premix 50 mls @ 25 mls/hr IV ONCE PRN PRN Reason: Magnesium less than 1.8 Magnesium Sulfate 2 gm/ Premix 50 mls @ 25 mls/hr IV ONCE PRN PRN Reason: Magnesium less than 1.8 Potassium Chloride 10 meq/ (Premix) 100 mls @ 100 mls/hr IV Q1H PRN PRN Reason: Potassium less than 3.5 Magnesium Sulfate 2 gm/ Premix 50 mls @ 25 mls/hr IV ONCE ONE Stop: 11/23/16 10:10 Insulin Human Regular (Humulin R) 0 unit SUBCUT ACHS [facility] PRN Reason: Protocol Last Admin: 11/22/16 21:53 Dose: 2 unit Lisinopril (Prinivil) 2.5 mg PO DAILY [facility] Last Admin: 11/22/16 08:32 Dose: 2.5 mg Magnesium Hydroxide (Milk Of Magnesia) 30 ml PO Q6H PRN PRN Reason: Constipation Nitroglycerin (Nitrostat) 0.4 mg SL Q5M PRN PRN Reason: Chest Pain Ondansetron HCl (Zofran Inj) 4 mg IV Q4H PRN PRN Reason: Nausea/Vomiting Pantoprazole Sodium (Protonix Tab) 40 mg PO DAILY [facility] Last Admin: 11/22/16 08:32 Dose: 40 mg Potassium Chloride (K Dur) 20 meq PO DAILY [facility] Last Admin: 04/10/17 12:17 Dose: 20 meq Rosuvastatin Calcium (Crestor) 40 mg PO BEDTIME JONATHAN Last Admin: 11/22/16 20:56 Dose: 40 mg Exam (Progress Note) - Constitutional Vitals: Period Temp Pulse Resp BP Sys/Merlos Pulse Ox Last 24 Hr 96.7 F-98.3 F 58-100 12-20 106-166/66-102 96-98 Exam: General: Appears well developed, well nourished, obese, no apparent distress HEENT: Normocephalic, atraumatic Neck: Supple Neck, Midline Trachea, No Bruit, No JVD Cardiac: Reg Rate and Rhythm, No Murmur, no gallop, no rub Lungs: Clear to auscultation, No Wheeze, Rales, Rhonchi Neuro: Cranial Nerve 2-12 Intact, Motor Function Grossly Intact Abdomen: Soft, Active Bowel Sounds, No Masses, No Pulsations/Bruits Skin: Normal color, no rash Extremities: No Clubbing, No Cyanosis, No Edema, Normal Upper Extr. Pulses, groin stable after catheterization Musculoskeletal: No acute abnormality noted Psychiatric: The patient does not appear to be anxious or depressed Result/EKG - Labs CBC & BMP: 11/23/16 02:10 11/23/16 02:10 Lab Results: I have reviewed the past 24 hour labs Labs: Laboratory Results - last 24 hr 11/22/16 11/22/16 11/22/16 12:03 16:27 21:01 WBC RBC Hgb Hct MCV MCH MCHC RDW Plt Count MPV Neut % (Auto) Lymph % (Auto) Elbert % (Auto) Eos % (Auto) Baso % (Auto) Neut # (Auto) Lymph # (Auto) Elbert # (Auto) Eos # (Auto) Baso # (Auto) Immature Gran % Nucleated RBC % Immature Gran # Nucleated RBCs # Sodium Potassium Chloride Carbon Dioxide Anion Gap BUN Creatinine GFR Calculation BUN/Creatinine Ratio Glucose POC Glucose 115 H 149 H 200 H Calculated Osmolality Calcium Magnesium 11/23/16 11/23/16 11/23/16 02:10 02:10 02:10 WBC 6.8 RBC 4.69 Hgb 12.3 L Hct 38.0 L MCV 81.0 L MCH 26 L MCHC 32.4 RDW 12.8 Plt Count 248 MPV 10.8 Neut % (Auto) 64.9 Lymph % (Auto) 25.2 Elbert % (Auto) 6.5 Eos % (Auto) 2.7 Baso % (Auto) 0.3 Neut # (Auto) 4.4 Lymph # (Auto) 1.7 Elbert # (Auto) 0.4 Eos # (Auto) 0.2 Baso # (Auto) 0.0 Immature Gran % 0.4 Nucleated RBC % 0.0 Immature Gran # 0.03 Nucleated RBCs # 0.00 Sodium 139 140 Potassium 3.8 3.8 Chloride 104 104 Carbon Dioxide 29 29 Anion Gap 9.8 10.8 BUN 10 10 Creatinine 0.90 0.80 GFR Calculation 132 138 BUN/Creatinine Ratio 11.00 12.00 Glucose 201 H 200 H POC Glucose Calculated Osmolality 281.5 283.4 Calcium 8.8 8.9 Magnesium 1.8 11/23/16 07:07 WBC RBC Hgb Hct MCV MCH MCHC RDW Plt Count MPV Neut % (Auto) Lymph % (Auto) Elbert % (Auto) Eos % (Auto) Baso % (Auto) Neut # (Auto) Lymph # (Auto) Elbert # (Auto) Eos # (Auto) Baso # (Auto) Immature Gran % Nucleated RBC % Immature Gran # Nucleated RBCs # Sodium Potassium Chloride Carbon Dioxide Anion Gap BUN Creatinine GFR Calculation BUN/Creatinine Ratio Glucose POC Glucose 164 H Calculated Osmolality Calcium Magnesium - EKG EKG results: interpreted by me Specialty Discharge - Follow Up or Referrals
[2016-11-23] MEDS: INSULIN REGULAR 100 UNIT/ML SUBCUT SCH ×2 (09:10→12:36)
[2016-11-23] MEDS: LEVOFLOXACIN INJ 750 MG in PREMIX 1 EACH IV SCH (12:50)
--- NOTE | 2016-11-23 14:09 | Discharge Summary ---
Hospital Course - Hospital Course Hospital Course: Mr. Kline was admitted with atypical chest pain. Troponins were noted to be mildly elevated and michael from 0.263 to 0.867. He had a history of two- vessel coronary bypass. He was seen by cardiology who performed a left heart cath which revealed diffuse disease however his prior grafts were widely patent. Patient had adjustment of his medications to include addition of Plavix and rosuvastatin. His beta-trevor was adjusted also. Patient was stable post cath and by discharge had met maximum benefit of hospitalization. Patient was instructed to follow-up with his primary care provider for diabetic management given that his diabetes is poorly controlled. - Time spent with patient Time with patient DS: Greater than 30 minutes Diagnosis - Discharge Diagnosis (1) Non-ST elevation OR (NSTEMI) Status: Acute (2) CAD (coronary artery disease) Status: Acute (3) Diabetes mellitus Status: Acute (4) Hypertension Status: Acute Specialty Discharge - Follow Up or Referrals Follow up with: Louis Contreras MD [Physician] - 12/08/16 10:50 am Discharge Plan - Discharge Data Disposition: Disch To Home/Self Care Condition at Discharge: Stable Discharge Diet: advance to your usual diet Activity: resume usual activities as tolerated - Discharge Medications New Nitroglycerin Sl Tab [Nitrostat] 0.4 mg SL Q5M PRN #30 tablet PRN Reason: Chest Pain Rosuvastatin [Crestor] 40 mg PO BEDTIME #30 tablet Lisinopril 20 mg PO DAILY #30 tablet Clopidogrel [Plavix] 75 mg PO DAILY #30 tablet Carvedilol [Coreg] 6.25 mg PO BID #60 tablet Continue Aspirin EC Tab 81 mg PO QAM Glimepiride 4 mg PO BID Insulin Glargine,Hum.rec.anlog [Toualexandroo SoloStniki] 40 unit SUBCUT BEDTIME Gemfibrozil 600 mg PO BID Insulin Glargine,Hum.rec.anlog [Toujeo SoloStar] 40 unit SUBCUT BEDTIME Discontinued Metoprolol Tartrate 50 mg PO QAM Losartan/Hydrochlorothiazide [Losartan-Hctz 100-25 mg Tab] 1 tablet PO DAILY dilTIAZem HCl [Tiazac] 360 mg PO QAM - Follow Up or Referral Follow Up: Louis Contreras MD [Physician] - 12/08/16 10:50 am - Forms/Instructions Instructions: Myocardial Infarction (GEN), Coronary Artery Disease (GEN), Left Heart Catheterization (DC), How to Stop Smoking (GEN), Heart Healthy Diet (GEN) , Cigarette Smoking and Your Health (GEN), Coronary Intravascular Stent Placement (DC) Exam - Constitutional Vitals: Period Temp Pulse Resp BP Sys/Merlos Pulse Ox Last 24 Hr 96.7 F-98.3 F 58-71 12-20 124-178/71-102 96-98 Discharge Results Labs on day of discharge: Labs from last 24 hours 11/23/16 11/23/16 11/23/16 11:22 07:07 02:10 WBC RBC Hgb Hct MCV MCH MCHC RDW Plt Count MPV Neut % (Auto) Lymph % (Auto) Mora % (Auto) Eos % (Auto) Baso % (Auto) Neut # (Auto) Lymph # (Auto) Mora # (Auto) Eos # (Auto) Baso # (Auto) Immature Gran % Nucleated RBC % Immature Gran # Nucleated RBCs # Sodium 140 Potassium 3.8 Chloride 104 Carbon Dioxide 29 Anion Gap 10.8 BUN 10 Creatinine 0.80 GFR Calculation 138 BUN/Creatinine Ratio 12.00 Glucose 200 H POC Glucose 203 H 164 H Calculated Osmolality 283.4 Calcium 8.9 Magnesium 11/23/16 11/23/16 11/22/16 02:10 02:10 21:01 WBC 6.8 RBC 4.69 Hgb 12.3 L Hct 38.0 L MCV 81.0 L MCH 26 L MCHC 32.4 RDW 12.8 Plt Count 248 MPV 10.8 Neut % (Auto) 64.9 Lymph % (Auto) 25.2 Mora % (Auto) 6.5 Eos % (Auto) 2.7 Baso % (Auto) 0.3 Neut # (Auto) 4.4 Lymph # (Auto) 1.7 Mora # (Auto) 0.4 Eos # (Auto) 0.2 Baso # (Auto) 0.0 Immature Gran % 0.4 Nucleated RBC % 0.0 Immature Gran # 0.03 Nucleated RBCs # 0.00 Sodium 139 Potassium 3.8 Chloride 104 Carbon Dioxide 29 Anion Gap 9.8 BUN 10 Creatinine 0.90 GFR Calculation 132 BUN/Creatinine Ratio 11.00 Glucose 201 H POC Glucose 200 H Calculated Osmolality 281.5 Calcium 8.8 Magnesium 1.8 11/22/16 16:27 WBC RBC Hgb Hct MCV MCH MCHC RDW Plt Count MPV Neut % (Auto) Lymph % (Auto) Mora % (Auto) Eos % (Auto) Baso % (Auto) Neut # (Auto) Lymph # (Auto) Mora # (Auto) Eos # (Auto) Baso # (Auto) Immature Gran % Nucleated RBC % Immature Gran # Nucleated RBCs # Sodium Potassium Chloride Carbon Dioxide Anion Gap BUN Creatinine GFR Calculation BUN/Creatinine Ratio Glucose POC Glucose 149 H Calculated Osmolality Calcium Magnesium DS: Provider Date of admission: 11/21/16 10:37 Primary care physician: . 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
[2016-11-23 15:45] VITALS: BP 166/103
== END 2016-11-23 16:14 | disposition home or self-care (01) | DRG 282 ==
LOC: N.ED 06:41 → N.EDINP 10:37 → N.TELES 11:04
PROVIDERS: ADMIT Internal Medicine; ATTEND Internal Medicine

== ENCOUNTER 2018-04-13 14:04 | Inpatient (IN) ==
[2018-04-13] MEDS ORDERED: ASPIRIN 325 MG TABLET PO STA (14:22)
[2018-04-13 15:21] LABS: Basophils # 0.1 10*3/uL (0.0-0.2); Basophils % 0.8 % (0.0-0.8); Eosinophils # 0.2 10*3/uL (0.0-0.87); Eosinophils % 2.4 % (0.00-10.9); Hematocrit 42.5 VOL% (42.0-52.0); Hemoglobin 14.4 GM/DL (14.0-18.0); Immature Granulocytes % 0.2 %; Immature Granulocytes Absolute 0.01 #; Lymphocytes # 1.7 10*3/uL (1.4-4.0); Lymphocytes % 26.2 % (21.2-54.2); Mean Corpuscular HGB Conc 33.9 GM/DL (32-36); Mean Corpuscular Hemoglobin 27 PG (27-34); Mean Platelet Volume 11.1 FL (9.6-12.0); Monocytes # 0.5 10*3/uL (0.11-0.8); Monocytes % 7.5 % (1.7-12.7); Neutrophils # 4.1 10*3/uL (1.4-7.4); Neutrophils % 62.9 % (38.7-73.9); Platelet Count 201 T/CUMM (130-400); Red Blood Count 5.25 MC/CUMM (3.8-5.5); Red Cell Distribution Width 13.1 % (9.3-17.3); White Blood Count 6.6 T/CUMM (4-12)
[2018-04-13 15:54] LABS: Albumin 3.5 G/DL (3.4-5.0); Bilirubin,Total 0.4 MG/DL (0.2-1.0); Calcium 8.4 MG/DL (8.5-10.1); INR 1.1; Osmolality,Calculated 287.3 MOS/KG (273-304); PT Patient Result 11.2 SECS; Partial Thromboplastin Time 28.4 SECS (0-40)
[2018-04-13] MEDS ORDERED: DOCUSATE SODIUM 100 MG CAPSULE PO PRN (18:29)
[2018-04-13] MEDS ORDERED: ONDANSETRON 4 MG/2 ML VIAL IV PRN (18:29)
[2018-04-13] MEDS ORDERED: GLUCAGON 1 MG VIAL IM PRN (18:29)
[2018-04-13] MEDS ORDERED: ACETAMINOPHEN 325 MG TABLET PO PRN (18:29)
[2018-04-13] MEDS ORDERED: DEXTROSE 50% 25 GM/50 ML VIAL IV PRN (18:29)
[2018-04-13] MEDS ORDERED: NICOTINE 21 MG/24 HR PATCH TRANSDERM PRN (18:29)
[2018-04-13] MEDS ORDERED: diphenhydrAMINE CAP 25 MG CAPSULE PO PRN (18:29)
[2018-04-13] MEDS ORDERED: NITROGLYCERIN SL 0.4 MG TABLET SL PRN (18:35)
[2018-04-13] MEDS: INSULIN LISPRO 100 UNIT/ML SUBCUT SCH ×2 (22:57→23:15)
[2018-04-13] MEDS: APIXABAN 5 MG TABLET PO SCH (22:57)
[2018-04-13] MEDS: CARVEDILOL 6.25 MG TABLET PO SCH (22:57)
[2018-04-13] MEDS: ASCORBIC ACID 500 MG TABLET PO SCH (22:57)
[2018-04-13] MEDS: INSULIN GLARGINE 100 UNIT/ML SUBCUT SCH (23:10)
[2018-04-13] MEDS: DILTIAZEM INJ 100 MG in SODIUM CHLORIDE 0.9% 100 ML IV SCH (23:14)
[2018-04-14 05:32] LABS: Basophils % 0.7 % (0.0-0.8); Eosinophils # 0.2 10*3/uL (0.0-0.87); Eosinophils % 2.6 % (0.00-10.9); Hematocrit 40.6 VOL% (42.0-52.0); Hemoglobin 13.4 GM/DL (14.0-18.0); Immature Granulocytes % 0.2 %; Immature Granulocytes Absolute 0.01 #; Lymphocytes # 1.9 10*3/uL (1.4-4.0); Lymphocytes % 32.5 % (21.2-54.2); Mean Corpuscular Hemoglobin 27 PG (27-34); Mean Corpuscular Volume 81.9 FL (87-102); Mean Platelet Volume 11.3 FL (9.6-12.0); Monocytes # 0.5 10*3/uL (0.11-0.8); Monocytes % 7.9 % (1.7-12.7); Neutrophils # 3.3 10*3/uL (1.4-7.4); Neutrophils % 56.1 % (38.7-73.9); Platelet Count 186 T/CUMM (130-400); Red Blood Count 4.96 MC/CUMM (3.8-5.5); White Blood Count 5.8 T/CUMM (4-12)
[2018-04-14 05:56] LABS: Calcium 8.5 MG/DL (8.5-10.1); Potassium 3.5 MMOL/L (3.5-5.1); Risk Ratio 2.52; Thyroid Stimulating Hormone 2.01 uIU/ml (0.358-3.74); VLDL CHOLESTEROL 12.8 MG/DL
[2018-04-14] MEDS: CARVEDILOL 6.25 MG TABLET PO SCH ×2 (09:13→21:14)
[2018-04-14] MEDS: ASPIRIN EC 81 MG TABLET PO SCH (09:13)
[2018-04-14] MEDS: ROSUVASTATIN 20 MG TABLET PO SCH (09:13)
[2018-04-14] MEDS: LISINOPRIL 10 MG TABLET PO SCH (09:13)
[2018-04-14] MEDS: APIXABAN 5 MG TABLET PO SCH ×2 (09:13→21:14)
[2018-04-14] MEDS: PANTOPRAZOLE 40 MG TABLET PO SCH (09:13)
[2018-04-14] MEDS: ASCORBIC ACID 500 MG TABLET PO SCH ×2 (09:13→21:14)
[2018-04-14] MEDS: ENOXAPARIN 40 MG/0.4 ML SYRINGE SUBCUT SCH (09:14)
[2018-04-14] MEDS: INSULIN LISPRO 100 UNIT/ML SUBCUT SCH ×2 (09:14→17:18)
[2018-04-14] MEDS: AMIODARONE 200 MG TABLET PO SCH ×2 (11:05→21:14)
[2018-04-14] MEDS: POTASSIUM CHLORIDE 20 MEQ TABLET PO SCH (11:05)
[2018-04-14] MEDS: INSULIN GLARGINE 100 UNIT/ML SUBCUT SCH (21:13)
[2018-04-14] MEDS: DILTIAZEM INJ 100 MG in SODIUM CHLORIDE 0.9% 100 ML IV SCH (21:21)
[2018-04-15 06:36] LABS: Basophils # 0.1 10*3/uL (0.0-0.2); Basophils % 0.8 % (0.0-0.8); Eosinophils # 0.1 10*3/uL (0.0-0.87); Eosinophils % 2.3 % (0.00-10.9); Hemoglobin 13.3 GM/DL (14.0-18.0); Immature Granulocytes % 0.2 %; Immature Granulocytes Absolute 0.01 #; Lymphocytes # 2.1 10*3/uL (1.4-4.0); Lymphocytes % 34.4 % (21.2-54.2); Mean Corpuscular HGB Conc 33.3 GM/DL (32-36); Mean Corpuscular Hemoglobin 28 PG (27-34); Mean Corpuscular Volume 82.6 FL (87-102); Mean Platelet Volume 11.3 FL (9.6-12.0); Monocytes # 0.4 10*3/uL (0.11-0.8); Monocytes % 7.3 % (1.7-12.7); Neutrophils # 3.3 10*3/uL (1.4-7.4); Platelet Count 195 T/CUMM (130-400); Red Blood Count 4.84 MC/CUMM (3.8-5.5); Red Cell Distribution Width 12.6 % (9.3-17.3)
[2018-04-15 06:48] LABS: Calcium 8.4 MG/DL (8.5-10.1); Osmolality,Calculated 284.3 MOS/KG (273-304); Potassium 3.6 MMOL/L (3.5-5.1)
[2018-04-15] MEDS: ENOXAPARIN 40 MG/0.4 ML SYRINGE SUBCUT SCH (08:26)
[2018-04-15] MEDS: ROSUVASTATIN 20 MG TABLET PO SCH (08:31)
[2018-04-15] MEDS: ASPIRIN EC 81 MG TABLET PO SCH (08:33)
[2018-04-15] MEDS: POTASSIUM CHLORIDE 20 MEQ TABLET PO SCH (08:33)
[2018-04-15] MEDS: APIXABAN 5 MG TABLET PO SCH (08:34)
[2018-04-15] MEDS: PANTOPRAZOLE 40 MG TABLET PO SCH (08:34)
[2018-04-15] MEDS: ASCORBIC ACID 500 MG TABLET PO SCH (08:34)
[2018-04-15] MEDS: INSULIN LISPRO 100 UNIT/ML SUBCUT SCH (08:36)
[2018-04-15] MEDS: LISINOPRIL 10 MG TABLET PO SCH (09:13)
[2018-04-15] MEDS: AMIODARONE 200 MG TABLET PO SCH (09:13)
[2018-04-15] MEDS: CARVEDILOL 6.25 MG TABLET PO SCH (09:29)
[2018-04-15] MEDS ORDERED: amLODIPine 5 MG TABLET PO SCH (09:30)
[2018-04-15 12:26] VITALS: BP 144/71
== END 2018-04-15 13:40 | disposition home or self-care (01) | DRG 310 ==
LOC: EDBD → EDUNIT# → N.ED 14:04 → SUATTDRO 18:29 → N.EDINP 18:29 → N.CC 22:24 → N.TELEN 04-14 15:40
PROVIDERS: ADMIT Internal Medicine; ATTEND Internal Medicine

== ENCOUNTER 2018-05-24 09:36 | Inpatient (IN) ==
[2018-05-24 10:51] LABS: Basophils % 0.7 % (0.0-0.8); Mean Corpuscular Hemoglobin 27 PG (27-34); Mean Platelet Volume 10.6 FL (9.6-12.0); Red Cell Distribution Width 13.6 % (9.3-17.3)
[2018-05-24 11:01] LABS: Eosinophils # 0.1 10*3/uL (0.0-0.87); Eosinophils % 0.9 % (0.00-10.9); Hematocrit 40.5 VOL% (42.0-52.0); Immature Granulocytes % 0.4 %; Immature Granulocytes Absolute 0.02 #; Lymphocytes # 1.5 10*3/uL (1.4-4.0); Lymphocytes % 27.3 % (21.2-54.2); Mean Corpuscular HGB Conc 32.3 GM/DL (32-36); Mean Corpuscular Volume 82.7 FL (87-102); Monocytes # 0.9 10*3/uL (0.11-0.8); Monocytes % 15.7 % (1.7-12.7); Neutrophils # 3.1 10*3/uL (1.4-7.4); Platelet Count 181 T/CUMM (130-400); White Blood Count 5.6 T/CUMM (4-12)
[2018-05-24 11:02] LABS: Hemoglobin 13.1 GM/DL (14.0-18.0)
[2018-05-24 11:11] LABS: Albumin 3.6 G/DL (3.4-5.0); Bilirubin,Total 0.6 MG/DL (0.2-1.0); Calcium 8.5 MG/DL (8.5-10.1); Osmolality,Calculated 279.8 MOS/KG (273-304); Potassium 3.8 MMOL/L (3.5-5.1); Total Protein 7.2 G/DL (6.4-8.3)
[2018-05-24] MEDS ORDERED: VANCOMYCIN INJ 1,000 MG in SODIUM CHLORIDE 0.9% 250 ML IV STA (11:27)
[2018-05-24 11:47] LABS: Eosinophils 1 % (0-10); Lymphocytes 30 % (20-55); Segmented Neutrophils 58 % (50-85); Total Cells Counted 100
[2018-05-24] MEDS ORDERED: VANCOMYCIN 1,000 MG VIAL ONE (11:52)
[2018-05-24 11:56] LABS: Microcytosis 1+; Ovalocytes Few
[2018-05-24 11:57] LABS: Platelet Estimate Normal
[2018-05-24] MEDS ORDERED: ACETAMINOPHEN 325 MG TABLET PO PRN (12:16)
[2018-05-24] MEDS ORDERED: GLUCAGON 1 MG VIAL IM PRN (12:16)
[2018-05-24] MEDS ORDERED: DEXTROSE 50% 25 GM/50 ML VIAL IV PRN (12:16)
[2018-05-24 12:44] LABS: Apearance,Urine CLEAR (Clear); Bilirubin,Urine Negative (Negative); Blood, Urine Negative (Negative); Glucose,Urine (UA) >=500 mg/dL (Negative); Ketones,Urine Negative (Negative); Mucus,Urine Occasional /LPF (Occasional); Nitrite,Urine Negative (Negative); Protein,Urine 100 MG/DL; RBC,Urine 1 /HPF (0-4); Squamous Epithelial Cell,Urine Occasional /HPF (0-10); Urine Color Yellow (Yellow); WBC,Urine 1 /HPF (0-6)
[2018-05-24] MEDS: INSULIN LISPRO 100 UNIT/ML SUBCUT SCH ×2 (15:49→21:34)
[2018-05-24] MEDS ORDERED: NITROGLYCERIN SL 0.4 MG TABLET SL PRN (15:49)
[2018-05-24] MEDS ORDERED: VANCOMYCIN INJ 1,500 MG in SODIUM CHLORIDE 0.9% 500 ML IV SCH (16:00)
[2018-05-24] MEDS: INSULIN GLARGINE 100 UNIT/ML SUBCUT SCH (21:34)
[2018-05-24] MEDS: APIXABAN 5 MG TABLET PO SCH (21:56)
[2018-05-25] MEDS: VANCOMYCIN INJ 1,500 MG in SODIUM CHLORIDE 0.9% 500 ML IV SCH ×2 (00:55→13:10)
[2018-05-25 07:02] LABS: Basophils % 0.6 % (0.0-0.8); Eosinophils # 0.1 10*3/uL (0.0-0.87); Eosinophils % 1.1 % (0.00-10.9); Hematocrit 37.1 VOL% (42.0-52.0); Hemoglobin 12.1 GM/DL (14.0-18.0); Immature Granulocytes % 0.5 %; Immature Granulocytes Absolute 0.03 #; Lymphocytes # 2.1 10*3/uL (1.4-4.0); Lymphocytes % 32.8 % (21.2-54.2); Mean Corpuscular HGB Conc 32.6 GM/DL (32-36); Mean Corpuscular Hemoglobin 27 PG (27-34); Mean Corpuscular Volume 82.1 FL (87-102); Monocytes # 0.9 10*3/uL (0.11-0.8); Monocytes % 13.4 % (1.7-12.7); Neutrophils # 3.3 10*3/uL (1.4-7.4); Neutrophils % 51.6 % (38.7-73.9); Platelet Count 182 T/CUMM (130-400); Red Blood Count 4.52 MC/CUMM (3.8-5.5); Red Cell Distribution Width 13.4 % (9.3-17.3); White Blood Count 6.3 T/CUMM (4-12)
[2018-05-25 07:27] LABS: Calcium 8.3 MG/DL (8.5-10.1); Osmolality,Calculated 275.5 MOS/KG (273-304); Potassium 3.3 MMOL/L (3.5-5.1)
[2018-05-25] MEDS: ROSUVASTATIN 20 MG TABLET PO SCH (09:30)
[2018-05-25] MEDS: amLODIPine 10 MG TABLET PO SCH (09:31)
[2018-05-25] MEDS: ASPIRIN EC 81 MG TABLET PO SCH (09:31)
[2018-05-25] MEDS: APIXABAN 5 MG TABLET PO SCH ×2 (09:31→20:32)
[2018-05-25] MEDS: LISINOPRIL 10 MG TABLET PO SCH (09:31)
[2018-05-25] MEDS: POTASSIUM CHLORIDE 20 MEQ TABLET PO PRN ×3 (09:33→16:35)
[2018-05-25] MEDS: INSULIN LISPRO 100 UNIT/ML SUBCUT SCH ×4 (09:40→21:09)
[2018-05-25] MEDS: INSULIN GLARGINE 100 UNIT/ML SUBCUT SCH (21:09)
[2018-05-26] MEDS: VANCOMYCIN INJ 1,500 MG in SODIUM CHLORIDE 0.9% 500 ML IV SCH ×2 (00:17→11:50)
[2018-05-26 03:25] LABS: Basophils % 0.7 % (0.0-0.8); Eosinophils # 0.2 10*3/uL (0.0-0.87); Eosinophils % 3.1 % (0.00-10.9); Hematocrit 35.4 VOL% (42.0-52.0); Hemoglobin 11.2 GM/DL (14.0-18.0); Immature Granulocytes % 0.3 %; Immature Granulocytes Absolute 0.02 #; Lymphocytes # 2.1 10*3/uL (1.4-4.0); Mean Corpuscular HGB Conc 31.6 GM/DL (32-36); Mean Corpuscular Hemoglobin 27 PG (27-34); Mean Corpuscular Volume 83.7 FL (87-102); Mean Platelet Volume 10.8 FL (9.6-12.0); Monocytes # 0.6 10*3/uL (0.11-0.8); Monocytes % 10.5 % (1.7-12.7); Neutrophils # 2.9 10*3/uL (1.4-7.4); Neutrophils % 49.4 % (38.7-73.9); Platelet Count 181 T/CUMM (130-400); Red Blood Count 4.23 MC/CUMM (3.8-5.5); Red Cell Distribution Width 13.3 % (9.3-17.3); White Blood Count 5.9 T/CUMM (4-12)
[2018-05-26 04:02] LABS: Calcium 7.9 MG/DL (8.5-10.1); Osmolality,Calculated 280.3 MOS/KG (273-304); Potassium 3.7 MMOL/L (3.5-5.1)
[2018-05-26] MEDS: INSULIN LISPRO 100 UNIT/ML SUBCUT SCH ×4 (07:57→20:29)
[2018-05-26] MEDS: ASPIRIN EC 81 MG TABLET PO SCH (08:36)
[2018-05-26] MEDS: amLODIPine 10 MG TABLET PO SCH (08:36)
[2018-05-26] MEDS: ROSUVASTATIN 20 MG TABLET PO SCH (08:36)
[2018-05-26] MEDS: APIXABAN 5 MG TABLET PO SCH ×2 (08:36→20:30)
[2018-05-26] MEDS: LISINOPRIL 10 MG TABLET PO SCH (08:36)
[2018-05-26] MEDS: INSULIN GLARGINE 100 UNIT/ML SUBCUT SCH (20:30)
[2018-05-27] MEDS: VANCOMYCIN INJ 1,500 MG in SODIUM CHLORIDE 0.9% 500 ML IV SCH ×2 (01:45→15:42)
[2018-05-27 05:35] LABS: Basophils % 0.7 % (0.0-0.8); Eosinophils # 0.2 10*3/uL (0.0-0.87); Eosinophils % 3.7 % (0.00-10.9); Hematocrit 35.3 VOL% (42.0-52.0); Hemoglobin 11.1 GM/DL (14.0-18.0); Immature Granulocytes % 0.2 %; Immature Granulocytes Absolute 0.01 #; Lymphocytes # 2.1 10*3/uL (1.4-4.0); Lymphocytes % 34.3 % (21.2-54.2); Mean Corpuscular HGB Conc 31.4 GM/DL (32-36); Mean Corpuscular Hemoglobin 26 PG (27-34); Mean Corpuscular Volume 82.9 FL (87-102); Mean Platelet Volume 10.7 FL (9.6-12.0); Monocytes # 0.5 10*3/uL (0.11-0.8); Neutrophils # 3.1 10*3/uL (1.4-7.4); Neutrophils % 52.1 % (38.7-73.9); Platelet Count 221 T/CUMM (130-400); Red Blood Count 4.26 MC/CUMM (3.8-5.5); Red Cell Distribution Width 13.2 % (9.3-17.3)
[2018-05-27 05:54] LABS: Alanine Aminotransferase 26 U/L (16-61); Albumin 2.7 G/DL (3.4-5.0); Alkaline Phosphatase 69 U/L (45-117); Aspartate Amino Transferase 21 U/L (0-37); Bilirubin,Total < 0.39 MG/DL (0.2-1.0); Blood Urea Nitrogen 11 MG/DL (7-18); Glucose 146 MG/DL (74-106); Osmolality,Calculated 280.4 MOS/KG (273-304); Potassium 3.8 MMOL/L (3.5-5.1); Sodium 140 MMOL/L (136-145); Total Protein 6.7 G/DL (6.4-8.3)
[2018-05-27] MEDS: INSULIN LISPRO 100 UNIT/ML SUBCUT SCH ×4 (07:31→21:24)
[2018-05-27] MEDS: ASPIRIN EC 81 MG TABLET PO SCH (08:25)
[2018-05-27] MEDS: ROSUVASTATIN 20 MG TABLET PO SCH (08:25)
[2018-05-27] MEDS: LISINOPRIL 10 MG TABLET PO SCH (08:25)
[2018-05-27] MEDS: APIXABAN 5 MG TABLET PO SCH ×2 (08:25→21:23)
[2018-05-27] MEDS: amLODIPine 10 MG TABLET PO SCH (08:25)
[2018-05-27] MEDS ORDERED: VANCOMYCIN INJ 1,500 MG in SODIUM CHLORIDE 0.9% 500 ML IV SCH (10:00)
[2018-05-27] MEDS: INSULIN GLARGINE 100 UNIT/ML SUBCUT SCH (21:26)
[2018-05-28] MEDS: VANCOMYCIN INJ 1,500 MG in SODIUM CHLORIDE 0.9% 500 ML IV SCH (00:11)
[2018-05-28 04:12] LABS: Basophils # 0.1 10*3/uL (0.0-0.2); Basophils % 0.8 % (0.0-0.8); Eosinophils # 0.2 10*3/uL (0.0-0.87); Eosinophils % 2.8 % (0.00-10.9); Hematocrit 34.6 VOL% (42.0-52.0); Hemoglobin 11.3 GM/DL (14.0-18.0); Immature Granulocytes % 0.3 %; Immature Granulocytes Absolute 0.02 #; Lymphocytes % 33.4 % (21.2-54.2); Mean Corpuscular HGB Conc 32.7 GM/DL (32-36); Mean Corpuscular Hemoglobin 27 PG (27-34); Mean Corpuscular Volume 82.6 FL (87-102); Mean Platelet Volume 10.6 FL (9.6-12.0); Monocytes # 0.5 10*3/uL (0.11-0.8); Monocytes % 8.6 % (1.7-12.7); Neutrophils # 3.3 10*3/uL (1.4-7.4); Neutrophils % 54.1 % (38.7-73.9); Platelet Count 224 T/CUMM (130-400); Red Blood Count 4.19 MC/CUMM (3.8-5.5); Red Cell Distribution Width 13.2 % (9.3-17.3)
[2018-05-28 04:41] LABS: Albumin 2.6 G/DL (3.4-5.0); Bilirubin,Total 0.7 MG/DL (0.2-1.0); Calcium 7.9 MG/DL (8.5-10.1); Osmolality,Calculated 286.1 MOS/KG (273-304); Total Protein 6.7 G/DL (6.4-8.3)
[2018-05-28] MEDS: amLODIPine 10 MG TABLET PO SCH (08:09)
[2018-05-28] MEDS: APIXABAN 5 MG TABLET PO SCH ×2 (08:09→21:23)
[2018-05-28] MEDS: ASPIRIN EC 81 MG TABLET PO SCH (08:09)
[2018-05-28] MEDS: ROSUVASTATIN 20 MG TABLET PO SCH (08:09)
[2018-05-28] MEDS: LISINOPRIL 10 MG TABLET PO SCH (08:09)
[2018-05-28] MEDS: INSULIN LISPRO 100 UNIT/ML SUBCUT SCH ×5 (08:10→21:23)
[2018-05-28] MEDS: SULFAMETHOX/TRIMETHOPRIM 800-160 MG TABLET PO SCH ×2 (08:10→21:23)
[2018-05-28] MEDS: INSULIN GLARGINE 100 UNIT/ML SUBCUT SCH (21:23)
[2018-05-29 05:14] LABS: Basophils % 0.6 % (0.0-0.8); Eosinophils # 0.2 10*3/uL (0.0-0.87); Eosinophils % 3.1 % (0.00-10.9); Hematocrit 34.8 VOL% (42.0-52.0); Hemoglobin 11.1 GM/DL (14.0-18.0); Immature Granulocytes % 0.4 %; Immature Granulocytes Absolute 0.03 #; Lymphocytes # 2.4 10*3/uL (1.4-4.0); Lymphocytes % 35.5 % (21.2-54.2); Mean Corpuscular HGB Conc 31.9 GM/DL (32-36); Mean Corpuscular Hemoglobin 27 PG (27-34); Mean Corpuscular Volume 83.7 FL (87-102); Mean Platelet Volume 10.8 FL (9.6-12.0); Monocytes # 0.5 10*3/uL (0.11-0.8); Neutrophils # 3.6 10*3/uL (1.4-7.4); Neutrophils % 52.4 % (38.7-73.9); Platelet Count 254 T/CUMM (130-400); Red Blood Count 4.16 MC/CUMM (3.8-5.5); Red Cell Distribution Width 13.2 % (9.3-17.3); White Blood Count 6.8 T/CUMM (4-12)
[2018-05-29 05:35] LABS: Albumin 2.8 G/DL (3.4-5.0); Bilirubin,Total 0.7 MG/DL (0.2-1.0); Calcium 8.3 MG/DL (8.5-10.1); Osmolality,Calculated 283.5 MOS/KG (273-304); Potassium 4.2 MMOL/L (3.5-5.1); Total Protein 6.9 G/DL (6.4-8.3)
[2018-05-29 08:08] VITALS: BP 130/81
[2018-05-29] MEDS: INSULIN LISPRO 100 UNIT/ML SUBCUT SCH (09:01)
[2018-05-29] MEDS: ROSUVASTATIN 20 MG TABLET PO SCH (09:01)
[2018-05-29] MEDS: SULFAMETHOX/TRIMETHOPRIM 800-160 MG TABLET PO SCH (09:02)
[2018-05-29] MEDS: ASPIRIN EC 81 MG TABLET PO SCH (09:02)
[2018-05-29] MEDS: LISINOPRIL 10 MG TABLET PO SCH (09:02)
[2018-05-29] MEDS: APIXABAN 5 MG TABLET PO SCH (09:02)
[2018-05-29] MEDS: amLODIPine 10 MG TABLET PO SCH (09:02)
== END 2018-05-29 09:39 | disposition home or self-care (01) | DRG 603 ==
LOC: N.ED 09:36 → N.EDINP 12:15 → INTOOBSV 12:15 → OBSVTOIN 12:15 → SUATTDRO 12:15 → N.2W 13:06 → N.5E 14:38
PROVIDERS: ADMIT Internal Medicine